=== PATIENT | male | born 1965 | race Caucasian/White ===

== ENCOUNTER 2018-07-03 14:07 | Inpatient (IN) ==
--- NOTE | 2018-07-03 14:19 | Emergency Department Note ---
Disposition Clinical Impression: Finger infection Disposition: Admitted As Inpatient Condition: Good Forms: ED Satisfaction Letter Time of Disposition: 15:29 Extremity Problem HPI - General Chief complaint: ED Extremity Problem,Nontraumatic Stated complaint: cellulitis on finger Time Seen by Provider: 07/03/18 14:17 Source: patient Mode of arrival: ambulatory Limitations: no limitations Nursing Notes Reviewed: Yes Vital Signs Reviewed: Yes - History of Present Illness HPI Narrative: Patient is a 52-year-old male with no past medical history. He presents today due to concern for left second digit/pointer finger infection. He states that he noted a small bump on the dorsal aspect of his second digit last week. He tried to pop this bump. Over the past week, he has developed redness, swelling, pus drainage. He saw an outside physician and is currently on Bactrim and Keflex. Note worsening pain, redness, swelling, pus drainage. Denies any injuries, falls, any injections in this area, any possibility of foreign bodies. Tetanus is not up-to-date. Denies any fevers, nausea, vomiting, diarrhea, abdominal pain, chest pain, shortness of breath. No allergies to any antibiotics. Pain Scale: 8 - Related Data Previous Rx's Medication Instructions Recorded Sulfamethoxazole/Trimeth DS 1 each PO BID 7 Days #14 tablet 06/30/18 [Bactrim DS] Allergies Allergy/AdvReac Type Severity Reaction Status Date / Time No Known Allergies Allergy Verified 06/30/18 18:01 All systems ED: reviewed and negative except as stated. Constitutional: Denies: fever Cardiovascular: Denies: chest pain Respiratory: Denies: cough, dyspnea Gastrointestinal: Denies: abdominal pain, nausea, vomiting, diarrhea, constipation Genitourinary: Denies: urgency, dysuria Integumentary: Reports: other (left pointer finger infection). Denies: rash Past Medical History - Past Medical History Attestation: Yes The following information was validated with the patient. Source: patient Medical history: Reports: non-contributory - Social History Smoking Status: Never smoker Smokeless Tobacco Status: No Alcohol use: Reports: occasionally Physical Exam - General Limitations: no limitations General appearance: alert, in no apparent distress - Head Head exam: atraumatic, normocephalic, normal inspection - Eye Eye exam: Present: normal appearance, PERRL, EOMI - ENT ENT exam: normal exam, normal oropharynx, mucous membranes moist - Neck Neck exam: Present: normal inspection, full ROM, trachea midline - Chest Chest inspection: Present: normal inspection, symmetric chest wall rise - Respiratory Respiratory exam: Present: normal lung sounds bilaterally - Cardiovascular Cardiovascular exam: Present: regular rate, normal rhythm, normal heart sounds - Expanded Upper Extremity Exam Hand L/R back image: 1 - Redness, swelling, fluctuance from middle phalanx to proximal phalanx of the pointer finger on the left. Small amount of pus drainage on the dorsal aspect. Erythema and cellulitis extending into the middle dorsum and ventral aspect of the hand. Mild pain with passive extension of the digit, fusiform swelling of the digit. Neuromotor exam: Normal: wrist extension, thumb opposition, thumb IP flexion, thumb adduction Neurosensory exam: Normal: radial nerve, ulnar nerve, median nerve - Neurological Exam Neurological exam: Present: alert, oriented X3. Absent: motor sensory deficit - Psychiatric Psychiatric exam: Present: normal affect, normal mood - Skin Skin exam: Present: warm, dry, intact, normal color Course Course Narrative: With those consulted. Discussed starting vancomycin, Unasyn, obtaining CT with contrast of the left hand for further assessment. Dr. Adelia Christensen is agreeable with this plan. He recommended admission to hospitalist service with him as a consult. No additional intervention or evaluation requested. Also update patient's tetanus at this time. Patient was agreeable with admission due to failed outpatient antibiotic therapy. Orthopedics will evaluate the patient at bedside once admitted and determine if he needs bedside incision and drainage or further debridement. Vital Signs Temperature 98.1 F 07/03/18 14:11 Pulse Rate 58 07/03/18 14:11 Respiratory Rate 18 07/03/18 14:11 Blood Pressure 149/82 07/03/18 14:11 O2 Sat by Pulse Oximetry 98 07/03/18 14:11 Temperature 98.1 F 07/03/18 15:02 Pulse Rate 61 07/03/18 15:02 Respiratory Rate 20 07/03/18 15:02 Blood Pressure 120/80 07/03/18 15:02 O2 Sat by Pulse Oximetry 97 07/03/18 15:02 Oxygen Delivery Oxygen Delivery Room Air Extremity Problem, Nontraumati - MDM Narrative Medical decision making narrative: With those consulted. Discussed starting vancomycin, Unasyn, obtaining CT with contrast of the left hand for further assessment. Dr. Adelia Christensen is agreeable with this plan. He recommended admission to hospitalist service with him as a consult. No additional intervention or evaluation requested. Also update patient's tetanus at this time. Patient was agreeable with admission due to failed outpatient antibiotic therapy. Orthopedics will evaluate the patient at bedside once admitted and determine if he needs bedside incision and drainage or further debridement. Consult placed. - Medical Records Medical records reviewed: Yes I reviewed the patient's medical records. - Lab Data Result diagrams: 07/03/18 14:37 07/03/18 14:37 Lab Results 07/03/18 07/03/18 07/03/18 Range/Units 14:37 14:37 14:37 WBC 14.0 H (4.3-11.1) K/mcL RBC 4.84 (4.19-5.50) M/mcL Hgb 14.7 (12.9-16.9) g/dL Hct 42.7 (37.5-50.1) % MCV 88.2 (83.0-100.0) fL MCH 30.4 (28.0-33.3) pg MCHC 34.4 (31.6-35.5) g/dL RDW 13.2 (11.5-14.5) % Plt Count 316 (140-400) K/mcL MPV 9.8 (9.4-12.4) fL Immature Gran % 0.2 (0-4) % Seg Neutrophils % 64.8 % Lymphocytes % 22.5 % Monocytes % 9.9 % Eosinophils % 2.0 % Basophils % 0.6 % Neutrophils # 9.1 H (1.6-8.9) K/mcL Lymphocytes # 3.2 (0.6-4.6) K/mcL Monocytes # 1.4 H (0.0-1.3) K/mcL Eosinophils # 0.3 (0.0-0.6) K/mcL Basophils # 0.1 (0.0-0.2) K/mcL PT 12.6 H (9.4-12.1) Seconds INR 1.1 Sodium 136 (136-145) mEq/L Potassium 4.2 (3.5-5.1) mEq/L Chloride 105 (98-107) mEq/L Carbon Dioxide 23 (23-29) mEq/L BUN 16 (6-20) mg/dL Creatinine 0.97 (0.70-1.30) mg/dL Est GFR ( Amer) > 60 (> 60) Est GFR (Non-Af Amer) > 60 (> 60) BUN/Creatinine Ratio 16 (6-26) Glucose 94 (70-105) mg/dL Calculated Osmolality 283 (280-300) Calcium 9.1 (8.6-10.3) mg/dL Total Bilirubin 0.4 (0.3-1.0) mg/dL AST 31 (13-39) Units/L ALT 19 (7-52) Units/L Alkaline Phosphatase 76 (34-104) Units/L Serum Total Protein 7.8 (6.4-8.9) g/dL Albumin 4.2 (3.5-5.7) g/dL Globulin 3.6 H (2.4-3.5) g/dL Albumin/Globulin Ratio 1.2 (1.1-2.2) - Radiology Data Radiology results reviewed: Yes I reviewed the patient's radiology results. S.B.AMelanie - Dimitris.Ji Situation: Demographics, MOA Background: Presenting Complaint, Relevant PMH, Meds, & Allergies Assessment: Vital Signs, Course and respsone to treatment, Exam Concerns, Patient/Family Expectation, Pertinant Lab Results, Outstanding Labs (CT left hand pending) Recommendation: Barrier(s) to disposition, Recommendation based on pending studies, treatments, or consults S.B.A.RIfeanyi Report Given to: Dr. Daniella Ritter Repor Time: 15:29 Attestation Statement - Attestation Attestation: I examined this patient and my medical decision-making was reviewed with the Resident Physician. I agree with the documented findings, disposition and treatment plan as described except to the extent set forth below. [id number] time provided Patient presents with significant left hand pain and swelling at the MCP joint affecting his second digit. Cellulitis present with a suspected abscess. He denies inciting injury. He is currently taking cephalexin and Bactrim. He will require admission and orthopedic consultation
[2018-07-03] MEDS ORDERED: Ampicillin/Sulbactam 1,500 MG in 0.9 % Sodium Chloride Mini Bag 100 ML IVPB ONE (14:25)
[2018-07-03] MEDS ORDERED: Isovue-370 500 ML INFUS..BTL IV ONE (14:29)
[2018-07-03] MEDS ORDERED: Tdap (Boostrix) Vaccine 0.5 ML SYRINGE IM ONE (14:34)
[2018-07-03 15:01] LABS: INR 1.1; Prothrombin Time 12.6 Seconds (9.4-12.1)
[2018-07-03 15:10] LABS: Alanine Aminotransferase 19 Units/L (7-52); Albumin 4.2 g/dL (3.5-5.7); Albumin/Globulin Ratio 1.2 (1.1-2.2); Alkaline Phosphatase 76 Units/L (34-104); Aspartate Amino Transferase 31 Units/L (13-39); BUN/Creatinine Ratio 16 (6-26); Bilirubin,Total 0.4 mg/dL (0.3-1.0); Blood Urea Nitrogen 16 mg/dL (6-20); Calcium 9.1 mg/dL (8.6-10.3); Carbon Dioxide 23 mEq/L (23-29); Chloride 105 mEq/L (98-107); Globulin 3.6 g/dL (2.4-3.5); Glucose 94 mg/dL (70-105); Osmolality,Calculated 283 (280-300); Potassium 4.2 mEq/L (3.5-5.1); Sodium 136 mEq/L (136-145); Total Protein 7.8 g/dL (6.4-8.9); eGFR For Non-African Americans > 60 (> 60)
[2018-07-03 15:14] LABS: Basophils # 0.1 K/mcL (0.0-0.2); Basophils % 0.6 %; Eosinophils # 0.3 K/mcL (0.0-0.6); Hematocrit 42.7 % (37.5-50.1); Hemoglobin 14.7 g/dL (12.9-16.9); Immature Granulocytes % 0.2 % (0-4); Lymphocytes # 3.2 K/mcL (0.6-4.6); Lymphocytes % 22.5 %; Mean Corpuscular HGB Conc 34.4 g/dL (31.6-35.5); Mean Corpuscular Hemoglobin 30.4 pg (28.0-33.3); Mean Corpuscular Volume 88.2 fL (83.0-100.0); Mean Platelet Volume 9.8 fL (9.4-12.4); Monocytes # 1.4 K/mcL (0.0-1.3); Monocytes % 9.9 %; Neutrophils # 9.1 K/mcL (1.6-8.9); Platelet Count 316 K/mcL (140-400); Red Blood Count 4.84 M/mcL (4.19-5.50); Red Cell Distribution Width 13.2 % (11.5-14.5); Segmented Neutrophils % 64.8 %
[2018-07-03] MEDS ORDERED: Acetaminophen 325 MG TABLET PO PRN ×2 (16:16→19:27)
[2018-07-03] MEDS ORDERED: traMADol 50 MG TABLET PO PRN ×2 (16:16→19:27)
[2018-07-03] MEDS ORDERED: Naloxone 0.4 MG/ML INJ IVP PRN ×2 (16:16→19:27)
--- NOTE | 2018-07-03 16:25 | Internal Med History&Physical ---
Date of Encounter: 07/03/18 Time of Encounter: 16:22 Internal Medicine - H&P: HPI Admitted From: Home Plans for Post Hospital Care: Home History of present illness: Patient is a 52-year-old male with no past medical history. He presents today due to concern for left second digit/pointer finger infection. He states that he noted a small bump on the dorsal aspect of his second digit last week. He tried to pop this bump. Over the past week, he has developed redness, swelling, pus drainage. He saw an outside physician and is currently on Bactrim and Keflex. Note worsening pain, redness, swelling, pus drainage. Denies any injuries, falls, any injections in this area, any possibility of foreign bodies. Tetanus is not up-to-date. Denies any fevers, nausea, vomiting, diarrhea, abdominal pain, chest pain, shortness of breath. No allergies to any antibiotics. Pt vital signs were stable at the ED, Labs showed leukocytosis. He received IV ampicillin and vancomycine at ED. Ortho hand surgery called and he will be admitted for inpatient management. Past Med Surg Social Fam HX - Past Medical History Medical history: non-contributory Psychiatric history: no psych history - Social History Smoking Status: Never smoker Smokeless Tobacco Status: No Alcohol use: occasionally Drug use: none Internal Medicine - H&P: Meds Sulfamethoxazole/Trimeth DS [Bactrim DS] 1 each PO BID 7 Days #14 tablet 06/30/18 [Rx] Cephalexin [Keflex] 500 mg PO QID 07/03/18 [History] Multivit-Min/FA/Lycopen/Lutein [A Thru Z Select Men 50+ Tablet] 1 tab PO DAILY 07/03/18 [History] Allergy/AdvReac Type Severity Reaction Status Date / Time No Known Allergies Allergy Verified 06/30/18 18:01 All Systems PM: A 10-system review of systems was performed and is negative for pertinent findings except as documented above in the HPI. Review of systems: REVIEW OF SYSTEMS: CONSTITUTIONAL: No weight loss, fever, chills, weakness or fatigue. HEENT: Eyes: No visual loss, blurred vision, double vision or yellow sclerae. Ears, Nose, Throat: No hearing loss, sneezing, congestion, runny nose or sore throat. SKIN: see HPI. CARDIOVASCULAR: No chest pain, chest pressure or chest discomfort. No palpitations or edema. RESPIRATORY: No shortness of breath, cough or sputum. GASTROINTESTINAL: No anorexia, nausea, vomiting or diarrhea. No abdominal pain or blood. GENITOURINARY: No dysuria, urgency, or frequency. NEUROLOGICAL: No headache, dizziness, syncope, paralysis, ataxia, numbness or tingling in the extremities. No change in bowel or bladder control. MUSCULOSKELETAL: No muscle, back pain, joint pain or stiffness. HEMATOLOGIC: No anemia, bleeding or bruising. LYMPHATICS: No enlarged nodes. No history of splenectomy. PSYCHIATRIC: No history of depression or anxiety. ENDOCRINOLOGIC: No reports of sweating, cold or heat intolerance. No polyuria or polydipsia. - Constitutional Vitals: Temp Pulse Resp BP Pulse Ox 98.1 F 61 20 120/80 97 07/03/18 15:02 07/03/18 15:02 07/03/18 15:02 07/03/18 15:02 07/03/18 15:02 General appearance: Present: cooperative, A&O X 3, answers questions appropriately Exam: PHYSICAL EXAMINATION: GENERAL APPEARANCE: The patient is alert, oriented and in no acute distress. HEENT: Head is normocephalic. The sinuses are nontender. Pupils are equal and reactive. The nares are patent. Oropharynx clear without lesions. NECK: Supple without lymphadenopathy. HEART: Regular rate and rhythm. LUNGS: No crackles or wheezes are heard. ABDOMEN: Soft, nontender, nondistended with good bowel sounds heard. Inguinal area is normal. EXTREMITIES: right index finger erythematous and edematous. NEUROLOGICAL: Gross nonfocal. SKIN: Warm and dry without any rash. Internal Med - H&P Results - Labs CBC & Chem 7: 07/03/18 14:37 07/03/18 14:37 Labs: Short CBC 07/03/18 Range/Units 14:37 WBC 14.0 H (4.3-11.1) K/mcL Hgb 14.7 (12.9-16.9) g/dL Hct 42.7 (37.5-50.1) % Plt Count 316 (140-400) K/mcL Neutrophils # 9.1 H (1.6-8.9) K/mcL BMP 07/03/18 14:37 Sodium 136 Potassium 4.2 Chloride 105 Carbon Dioxide 23 BUN 16 Creatinine 0.97 Glucose 94 Calcium 9.1 Liver Function 07/03/18 Range/Units 14:37 Total Bilirubin 0.4 (0.3-1.0) mg/dL AST 31 (13-39) Units/L ALT 19 (7-52) Units/L Alkaline Phosphatase 76 (34-104) Units/L Albumin 4.2 (3.5-5.7) g/dL - Impressions ITS Impressions Hand CT 07/03/18 14:29 IMPRESSION: 1. Severe soft tissue swelling/cellulitis and phlegmonous change along the radial aspect of the 2nd digit with early organizing, irregular, low-density collection likely representing developing/early abscess formation measuring approximately or an estimated 4.3 x 0.8 x 0.8 cm. [id number] cellulitis of the remainder of the forearm, wrist, and hand. 2. Mild osteoarthrosis. No acute fracture or gross dislocation. No aggressive osseous destruction. No clear CT evidence for osteomyelitis. D/ / 07/03/2018 16:02:20 Yannick Pinon MD / [facility] Interpreting Provider: Yannick Pinon MD - Assessment and plan (1) Finger infection Current Visit: Yes Status: Acute Assessment and plan: Right index finger infection with possible abscess. Hand surgeon called. Blood cx ordered. continue IV cefepime and vanco. (2) DVT prophylaxis Current Visit: Yes Status: Acute Assessment and plan: ambulating. SCDs. - Time Spent With Patient Total time spent is greater than 50% in coordination of care (as documented) at patient's floor/unit and/or counseling patient: Greater than 35 minutes
--- NOTE | 2018-07-03 17:01 | Anesthesia Evaluation PreOp ---
Date of Encounter: 07/03/18 Time of Encounter: 16:59 - Past History Planned Operation: I and D left hand Index finger Cardiac History: Denies any Significant Hx Pulmonary History: Denies Any Significant HX INSURANCE APPLICATION INVESTIGATOR History: Denies Any Significant HX Other Medical History: Denies Any Significant HX Anesthesia History: No Prior Anesthetic Complications, Past Anesthesia (tonsill s) Alcohol Use: occasionally Drug use: none Medications and Allergies Sulfamethoxazole/Trimeth DS [Bactrim DS] 1 each PO BID 7 Days #14 tablet 06/30/18 [Rx] Cephalexin [Keflex] 500 mg PO QID 07/03/18 [History] Multivit-Min/FA/Lycopen/Lutein [A Thru Z Select Men 50+ Tablet] 1 tab PO DAILY 07/03/18 [History] Allergy/AdvReac Type Severity Reaction Status Date / Time No Known Allergies Allergy Verified 06/30/18 18:01 - Meds/Allergy Pre-op Review Medications Reviewed: Yes Allergies Reviewed: Yes Beta Blockers on Current Med List: No Anesthesia Results - Labs 07/03/18 14:37 07/03/18 14:37 Laboratory Tests 07/03/18 14:37 PT 12.6 H INR 1.1 Anesthesia Exam Vital Signs/O2 Sat, Most Current Temp Pulse Resp BP Pulse Ox 98.1 F 61 20 120/80 97 07/03/18 15:02 07/03/18 15:02 07/03/18 15:02 07/03/18 15:02 07/03/18 15:02 Weight: 92kg NPO (# of Hours): >8 - HEENT Pupil (Motor): Pupils equal, EOMI Mallampati: II Teeth: Poor dentition Oral Opening: Greater than 3 - INSURANCE APPLICATION INVESTIGATOR LOC: Oriented INSURANCE APPLICATION INVESTIGATOR Motor: Normal RUE, Normal LUE, Normal RLE, Normal LLE, Normal Face INSURANCE APPLICATION INVESTIGATOR Sensory: Normal: RUE, LUE, RLE, LLE, Face - Cardiac Rhythm: Regular - Pulmonary Breath Sounds: bilateral Clear Respiratory Effort: Symmetrical Anesthesia Assess/Plan ASA Score: 2 Level of consciousness: Cooperative Anesthetic Plan: General Monitoring Plan: Standard Monitors Recovery Plan: PACU
[2018-07-03] MEDS ORDERED: Lidocaine -MPF 2% 2 ML VIAL ONE (17:29)
[2018-07-03] MEDS ORDERED: Propofol 500 MG/50 ML INFUS..BTL ONE (17:29)
[2018-07-03] MEDS ORDERED: *HR* Midazolam HCl 2 MG/2 ML VIAL ONE (17:29)
[2018-07-03] MEDS ORDERED: *HR* FentaNYL (PF) 100 MCG/2 ML VIAL ONE ×2 (17:29→18:26)
[2018-07-03] MEDS ORDERED: Bupivacaine/EPI 1:200k 0.5%PF 10 ML VIAL ONE (17:30)
[2018-07-03] MEDS ORDERED: Ondansetron 4 MG/2 ML VIAL ONE (17:34)
[2018-07-03] MEDS ORDERED: Dexamethasone 4 MG/ML VIAL ONE (17:34)
[2018-07-03] MEDS ORDERED: *HR* OxyCODONE Immed Rel 5 MG TABLET PO PRN ×2 (17:35→19:27)
[2018-07-03] MEDS ORDERED: *HR* Promethazine 25 MG/ML VIAL IVP PRN ×2 (17:35→19:27)
[2018-07-03] MEDS ORDERED: *HR* HYDROmorphone (PF) 1 MG/ML SYRINGE IVP PRN ×2 (17:35→19:27)
[2018-07-03] MEDS ORDERED: KETAMINE HCL 50 MG/ML SYRINGE IV ONE (17:37)
--- NOTE | 2018-07-03 17:45 | Orthopedic Consult Note ---
Date of Encounter: 07/03/18 Time of Encounter: 17:42 Assessment and Plan (1) Abscess of skin or subcutaneous tissue Current Visit: No Status: Acute I did discuss the diagnosis in detail the patient. He has a left hand infection with soft tissue abscess. My recommendation was for incision, drainage, irrigation, debridement of left hand and dorsal index finger. The risks discussed included but were not limited to stiffness, bleeding, infection, blood clots, damage to neurovascular structures, tendons, ligaments, and bone. Also discussed was the risk of continued symptoms and possible need for further procedures. I did discuss the anesthesia risks including stroke, heart attack, and . I did discuss the reasonable, foreseeable postoperative course with the patient. The patient did wish to proceed and consent was obtained. I did discuss the risk for possibly needing multiple debridements depending on the postoperative course. He will need IV antibiotics through the weekend. Qualifiers: Site of cutaneous abscess: extremity Site of cutaneous abscess of extremity: hand Laterality: left Qualified Code(s): L02.512 - Cutaneous abscess of left hand History of Present Illness HPI: Mr. Taylor is a 52 year old male who is seen in the emergency department after 6 day history of pain and swelling to the left hand and dorsal index finger. He works as a airframe and power plant mechanic. He is seen in the emergency department here and diagnosed with a hand and index finger abscess by the emergency department physician. The patient is unclear exactly what caused the infection. He denies injecting IV drugs. He denies any numbness, tingling, or any other associated signs or symptoms. It is worse with movement of the index finger better with rest. No other modifying factors. He denies any fevers, chills, or feelings of illness. Past Med Surg Social Fam HX - Past Medical History Medical history: non-contributory Psychiatric history: no psych history - Social History Smoking Status: Never smoker Smokeless Tobacco Status: No Alcohol use: occasionally Drug use: none Medications and Allergies Sulfamethoxazole/Trimeth DS [Bactrim DS] 1 each PO BID 7 Days #14 tablet 06/30/18 [Rx] Cephalexin [Keflex] 500 mg PO QID 07/03/18 [History] Multivit-Min/FA/Lycopen/Lutein [A Thru Z Select Men 50+ Tablet] 1 tab PO DAILY 07/03/18 [History] Allergy/AdvReac Type Severity Reaction Status Date / Time No Known Allergies Allergy Verified 06/30/18 18:01 All Systems Reviewed: Constitutional -The patient denies any fevers, chills, or feelings of illness Musculoskeletal -The patient denies any joint pains, swelling, muscle aches Neurologic -The patient denies any numbness, tingling, or burning pains Physical Exam - Constitutional Vitals: Temp Pulse Resp BP Pulse Ox 98.1 F 62 20 122/74 99 07/03/18 15:02 07/03/18 17:00 07/03/18 17:06 07/03/18 17:06 07/03/18 17:00 CONSTITUTIONAL -Vitals reviewed -The patient is well developed, well nourished, well groomed PSYCHIATRIC -Fully alert and oriented -Pleasant mood LEFT UPPER EXTREMITY Inspection shows significant swelling of the index finger and the hand with fluctuance and induration along the dorsal metacarpophalangeal joint region. There is tenderness to palpation mostly over the area of fluctuance and induration. Cellulitis is limited to the dorsal hand and index finger region. Full motion of the elbow, wrist, and other digits without issue. The patient can actively flex and extend all digits, extend the thumb, cross the index and long fingers, make an okay sign, and oppose the thumb. The fingertips are all grossly sensate and well-perfused, and the radial artery pulse is 2+. Diagnostic Imaging: I did personally review and interpret x-rays and the CT scan of the left hand which show a soft tissue abscess along the dorsal aspect of the index finger spreading into the hand. No concern for osteomyelitis. Results - Labs Result Diagrams: 07/03/18 14:37 07/03/18 14:37 Labs: Abnormal lab results WBC 14.0 K/mcL (4.3-11.1) H 07/03/18 14:37 Neutrophils # 9.1 K/mcL (1.6-8.9) H 07/03/18 14:37 Monocytes # 1.4 K/mcL (0.0-1.3) H 07/03/18 14:37 PT 12.6 Seconds (9.4-12.1) H 07/03/18 14:37 Globulin 3.6 g/dL (2.4-3.5) H 07/03/18 14:37 H & H 07/03/18 Range/Units 14:37 Hgb 14.7 (12.9-16.9) g/dL Hct 42.7 (37.5-50.1) % All other labs normal. Consult Discharge Plan - Plan Referrals: NONE,PCP [Primary Care Provider] -
[2018-07-03] MEDS ORDERED: *HR* Heparin 5,000 UNIT/ML VIAL SQ SCH (18:00)
[2018-07-03] MEDS ORDERED: Cefepime HCl 2,000 MG in 0.9 % Sodium Chloride Mini Bag 100 ML IVPB SCH (18:00)
[2018-07-03] MEDS ORDERED: Ketorolac 30 MG/ML VIAL ONE (18:33)
--- NOTE | 2018-07-03 18:51 | Orthopedic Operative Note ---
Date of procedure: 07/03/18 Procedure: OPERATIVE REPORT SURGEON: Steven Flynn MD PREOPERATIVE DIAGNOSIS: Left index finger abscess POSTOPERATIVE DIAGNOSIS: Same PROCEDURE: Incision, drainage, irrigation, and debridement of the left index finger ANESTHESIA: Gen. anesthesia SPECIMENS: Left index finger swabs PREOPERATIVE NOTE The surgical plan was reviewed with the patient. The risks, benefits, alternatives, and potential complications of this procedure were discussed with the patient including injury to veins, arteries, nerves, tendons, ligaments, and bone. Also discussed were the risks of infection, bleeding, pain, blood clots, the possible need for a blood transfusion, the possible need for further procedures, heart attack, stroke, and . Additional risks include persistent symptoms despite surgery. All of this was explained in simple terms, and the patient verbalized understanding and wished to proceed. Consent was given to proceed with surgery. PROCEDURE: The patient was seen in the preoperative holding area where the identify and the consent were confirmed. The left index finger was marked. Final questions were answered. The patient was brought back to the operating room and placed supine on the operating room table. A huddle was performed with the patient and all vital surgical team members confirming patient identity, the correct procedure, and the correct operative site. Gen. anesthesia was administered. The operative extremity was prepped and draped in the usual sterile fashion. A surgical time out was performed immediately preceding the incision with all personnel in the operating room to confirm patient identity, the correct operative site and extremity, correct radiographic studies, availability of appropriate surgical equipment, and agreement on the planned procedure. The tourniquet was inflated without exsanguination. A dorsal longitudinal incision was made over the index finger and dissection proceeded through the subcutaneous tissue immediately decompressing copious amounts of grossly purulent material. The infection did not go down to the extensor tendon region however it did not penetrate down to bone. The MCP joint was not involved. Necrotic subcutaneous fat was sharply debrided. Wound was irrigated with 3 L of saline. The wound bed appeared clean after debridement. The wound was loosely closed over a Mermentau drain. The tourniquet was deflated and a soft, sterile dressing was applied. The instrument, sponge, and needle counts were correct after wound closure. POST OPERATIVE PLAN: He will remain over the weekend on IV antibiotics to evaluate for improvement. I anticipate pulling the drain on Friday depending on the amount of drainage. Was there an internal medicine physician assistant present: No Estimated blood loss (cc): 5
[2018-07-03] MEDS: Cefepime HCl 2,000 MG in Water for inj. (sterile) 20 ML 20 ML IVP SCH (21:28)
[2018-07-04 05:57] LABS: Basophils % 0.2 %; Hematocrit 38.5 % (37.5-50.1); Hemoglobin 13.4 g/dL (12.9-16.9); Immature Granulocytes % 0.4 % (0-4); Lymphocytes # 1.8 K/mcL (0.6-4.6); Lymphocytes % 16.3 %; Mean Corpuscular HGB Conc 34.8 g/dL (31.6-35.5); Mean Corpuscular Hemoglobin 30.5 pg (28.0-33.3); Mean Corpuscular Volume 87.5 fL (83.0-100.0); Mean Platelet Volume 9.7 fL (9.4-12.4); Monocytes # 0.5 K/mcL (0.0-1.3); Monocytes % 4.6 %; Neutrophils # 8.5 K/mcL (1.6-8.9); Platelet Count 317 K/mcL (140-400); Segmented Neutrophils % 78.5 %
[2018-07-04] MEDS: *HR* Heparin 5,000 UNIT/ML VIAL SQ SCH ×2 (06:08→17:57)
[2018-07-04 06:17] LABS: BUN/Creatinine Ratio 17 (6-26); Blood Urea Nitrogen 15 mg/dL (6-20); Calcium 8.7 mg/dL (8.6-10.3); Carbon Dioxide 23 mEq/L (23-29); Chloride 105 mEq/L (98-107); Glucose 145 mg/dL (70-105); Osmolality,Calculated 285 (280-300); Potassium 4.5 mEq/L (3.5-5.1); Sodium 136 mEq/L (136-145); eGFR For Non-African Americans > 60 (> 60)
[2018-07-04] MEDS: Cefepime HCl 2,000 MG in Water for inj. (sterile) 20 ML 20 ML IVP SCH ×2 (08:15→21:18)
--- NOTE | 2018-07-04 08:55 | Orthopedics Progress Note ---
Date of Encounter: 07/04/18 Time of Encounter: 08:53 - Assessment and Plan (1) Abscess of skin or subcutaneous tissue Current Visit: No Status: Acute Qualifiers: Site of cutaneous abscess: extremity Site of cutaneous abscess of extremity: hand Laterality: left Qualified Code(s): L02.512 - Cutaneous abscess of left hand Subjective Interval history: S: Significant improvement in pain to the left index finger O: Afebrile on the vital signs are stable Inspection shows significant improvement in the swelling and improvement in the erythema to the left hand and dorsal index finger Maddison is in place No purulent drainage He can grossly motor the digits with some limitation due to pain and swelling The patient can actively flex and extend all digits, extend the thumb, cross the index and long fingers, make an okay sign, and oppose the thumb. The fingertips are all grossly sensate and well-perfused, and the radial artery pulse is 2+. Cultures are pending A: Post I&D of the left hand and index finger P: My recommendation is continued IV antibiotics over the weekend Continued local wound care with daily dressing changes I anticipate pulling the drain tomorrow I did encourage ambulation for DVT prophylaxis Motion exercises of the digits to reduce stiffness Objective Vital signs: Vital Signs Temp Pulse Resp BP Pulse Ox 07/04/18 06:26 98 F 63 17 102/66 95 07/04/18 04:10 98.9 F 63 17 132/88 97 07/03/18 23:15 99.3 F 60 18 130/92 98 07/03/18 19:14 62 18 127/90 99 07/03/18 19:04 65 16 148/89 98 07/03/18 18:54 65 16 137/89 98 07/03/18 18:44 99.8 F H 64 12 131/92 94 07/03/18 17:06 20 122/74 07/03/18 17:00 62 20 128/88 99 07/03/18 15:02 98.1 F 61 20 120/80 97 07/03/18 15:01 61 20 120/80 97 07/03/18 14:45 58 20 123/81 96 07/03/18 14:11 98.1 F 58 18 149/82 98 Intake and Output 07/03/18 07/04/18 07/04/18 23:59 07:59 15:59 Intake Total 270 / 270 Output Total 5 / 5 Balance 265 / 265 Intake: IV Fluids 270 / 270 Maxipime 2,000 MG In Water for / inj. (sterile) 20 ML @ 300 mls/ hr IVP BID [facility] Rx#:[id number] Vancocin 1,500 MG In 0.9 % 250 / 250 Sodium Chloride 250 ML @ 167 mls/hr IVPB ONCE ONE Rx#: [id number] Output: Estimated Blood Loss Other: # Voids 1 1 Weight 92.5 kg Patient Weight 07/04/18 23:59 Weight 92.5 kg - Labs CBC & BMP: 07/04/18 05:18 07/04/18 05:18 Labs: Abnormal lab results PT 12.6 Seconds (9.4-12.1) H 07/03/18 14:37 Glucose 145 mg/dL (70-105) H 07/04/18 05:18 Globulin 3.6 g/dL (2.4-3.5) H 07/03/18 14:37 Consult Discharge Plan - Plan Referrals: NONE,PCP [Primary Care Provider] -
--- NOTE | 2018-07-04 12:24 | Internal Med Progress Note ---
Hospitalist Progress Note - Encounter Date of Encounter: 07/04/18 Time of Encounter: 12:22 - Subjective Interval History: pt feels much better, can move the fingers. - Exam Vitals: Temp Pulse Resp BP Pulse Ox 97.9 F 59 16 134/69 97 07/04/18 11:27 07/04/18 11:27 07/04/18 11:27 07/04/18 11:27 07/04/18 11:27 Exam: PHYSICAL EXAMINATION: GENERAL APPEARANCE: The patient is alert, oriented and in no acute distress. HEENT: Head is normocephalic. The sinuses are nontender. Pupils are equal and reactive. The nares are patent. Oropharynx clear without lesions. NECK: Supple without lymphadenopathy. HEART: Regular rate and rhythm. LUNGS: No crackles or wheezes are heard. ABDOMEN: Soft, nontender, nondistended with good bowel sounds heard. Inguinal area is normal. EXTREMITIES: right index finger covered with dressing. NEUROLOGICAL: Gross nonfocal. SKIN: Warm and dry without any rash. - Assessment and Plan (1) Finger infection Current Visit: Yes Status: Acute Assessment and Plan: Right index finger infection with possible abscess. s/p I+D, continue IV abx. Ortho following. (2) DVT prophylaxis Current Visit: Yes Status: Acute Assessment and Plan: ambulating. SCDs. - Time Spent with Patient Total time spent is greater than 50% in coordination of care (as documented) at patient's floor/unit and/or counseling patient: Greater than 35 minutes Plan of Care Discussed with: patient Internal Medicine: Result - Labs CBC & Chem 7: 07/04/18 05:18 07/04/18 05:18 Labs: Short CBC 07/03/18 07/04/18 Range/Units 14:37 05:18 WBC 14.0 H 10.8 (4.3-11.1) K/mcL Hgb 14.7 13.4 (12.9-16.9) g/dL Hct 42.7 38.5 (37.5-50.1) % Plt Count 316 317 (140-400) K/mcL Neutrophils # 9.1 H 8.5 (1.6-8.9) K/mcL BMP 07/03/18 07/04/18 14:37 05:18 Sodium 136 136 Potassium 4.2 4.5 Chloride 105 105 Carbon Dioxide 23 23 BUN 16 15 Creatinine 0.97 0.89 Glucose 94 145 H Calcium 9.1 8.7 Liver Function 07/03/18 Range/Units 14:37 Total Bilirubin 0.4 (0.3-1.0) mg/dL AST 31 (13-39) Units/L ALT 19 (7-52) Units/L Alkaline Phosphatase 76 (34-104) Units/L Albumin 4.2 (3.5-5.7) g/dL - ABG Interpretation ABG results: PT/INR, D-dimer PT 12.6 Seconds (9.4-12.1) H 07/03/18 14:37 - Impressions Impressions Hand CT 07/03/18 14:29 IMPRESSION: 1. Severe soft tissue swelling/cellulitis and phlegmonous change along the radial aspect of the 2nd digit with early organizing, irregular, low-density collection likely representing developing/early abscess formation measuring approximately or an estimated 4.3 x 0.8 x 0.8 cm. [id number] cellulitis of the remainder of the forearm, wrist, and hand. 2. Mild osteoarthrosis. No acute fracture or gross dislocation. No aggressive osseous destruction. No clear CT evidence for osteomyelitis. D/ / 07/03/2018 16:02:20 Yannick Pinon [facility] Interpreting Provider: Yannick Pinon MD Consult Discharge Plan - Plan Referrals: NONE,PCP [Primary Care Provider] -
[2018-07-05 03:20] LABS: Basophils # 0.1 K/mcL (0.0-0.2); Basophils % 1.1 %; Eosinophils # 0.3 K/mcL (0.0-0.6); Eosinophils % 3.7 %; Hematocrit 38.4 % (37.5-50.1); Hemoglobin 12.8 g/dL (12.9-16.9); Immature Granulocytes % 0.3 % (0-4); Lymphocytes # 3.1 K/mcL (0.6-4.6); Lymphocytes % 39.4 %; Mean Corpuscular HGB Conc 33.3 g/dL (31.6-35.5); Mean Corpuscular Hemoglobin 29.9 pg (28.0-33.3); Mean Corpuscular Volume 89.7 fL (83.0-100.0); Mean Platelet Volume 9.5 fL (9.4-12.4); Monocytes # 0.8 K/mcL (0.0-1.3); Monocytes % 9.8 %; Neutrophils # 3.6 K/mcL (1.6-8.9); Platelet Count 329 K/mcL (140-400); Red Blood Count 4.28 M/mcL (4.19-5.50); Segmented Neutrophils % 45.7 %
[2018-07-05 03:43] LABS: BUN/Creatinine Ratio 20 (6-26); Blood Urea Nitrogen 19 mg/dL (6-20); Calcium 8.1 mg/dL (8.6-10.3); Carbon Dioxide 26 mEq/L (23-29); Chloride 109 mEq/L (98-107); Glucose 107 mg/dL (70-105); Osmolality,Calculated 291 (280-300); Sodium 139 mEq/L (136-145); eGFR For Non-African Americans > 60 (> 60)
[2018-07-05] MEDS: *HR* Heparin 5,000 UNIT/ML VIAL SQ SCH ×2 (04:37→16:55)
--- NOTE | 2018-07-05 09:58 | Orthopedics Progress Note ---
Date of Encounter: 07/05/18 Time of Encounter: 09:57 - Assessment and Plan (1) Abscess of skin or subcutaneous tissue Current Visit: No Status: Acute Qualifiers: Site of cutaneous abscess: extremity Site of cutaneous abscess of extremity: hand Laterality: left Qualified Code(s): L02.512 - Cutaneous abscess of left hand Subjective Interval history: S: Significant improvement in pain to the left index finger O: Afebrile on the vital signs are stable Inspection shows significant improvement in the swelling and improvement in the erythema to the left hand and dorsal index finger Maddison is pulled No purulent drainage He can grossly motor the digits with some limitation due to pain and swelling The patient can actively flex and extend all digits, extend the thumb, cross the index and long fingers, make an okay sign, and oppose the thumb. The fingertips are all grossly sensate and well-perfused, and the radial artery pulse is 2+. Cultures are presumptively positive for MRSA A: Post I&D of the left hand and index finger P: My recommendation is continued IV antibiotics over the weekend Continued local wound care with daily dressing changes Anticipate discharge tomorrow on oral antibiotics if he continues to improve overnight. I did encourage ambulation for DVT prophylaxis Motion exercises of the digits to reduce stiffness Objective Vital signs: Vital Signs Temp Pulse Resp BP Pulse Ox 07/05/18 06:29 97.9 F 64 16 118/76 98 07/05/18 05:17 97.7 F 55 16 112/70 97 07/05/18 00:06 98.5 F 59 16 109/60 94 07/04/18 20:27 98.8 F 64 14 115/66 95 07/04/18 16:11 98.6 F 63 16 105/62 95 07/04/18 11:27 97.9 F 59 16 134/69 97 Intake and Output 07/04/18 07/05/18 07/05/18 23:59 07:59 15:59 Intake Total 510 / 510 250 / 250 Output Total 0 / 0 Balance 510 / 510 250 / 250 Intake: IV Fluids 270 / 270 250 / 250 Maxipime 2,000 MG In Water for inj. (sterile) 20 ML @ 300 mls/ hr IVP BID [facility] Rx#:[id number] Vancocin 1,500 MG In 0.9 % 250 / 250 250 / 250 Sodium Chloride 250 ML @ 166.67 mls/hr IVPB Q12H [facility] Rx#: [id number] Oral 240 / 240 0 / 0 Output: Urine 0 / 0 Other: Meal Dinner Percent of Meal Consumed 100% # Voids 1 1 Weight 92.38 kg Patient Weight 07/05/18 23:59 Weight 92.38 kg - Labs CBC & BMP: 07/05/18 03:03 07/05/18 03:03 Labs: Abnormal lab results Hgb 12.8 g/dL (12.9-16.9) L 07/05/18 03:03 PT 12.6 Seconds (9.4-12.1) H 07/03/18 14:37 Chloride 109 mEq/L (98-107) H 07/05/18 03:03 Glucose 107 mg/dL (70-105) H 07/05/18 03:03 Calcium 8.1 mg/dL (8.6-10.3) L 07/05/18 03:03 Globulin 3.6 g/dL (2.4-3.5) H 07/03/18 14:37 Vancomycin Trough 11 mcg/mL (5-10) H 07/05/18 03:03 Consult Discharge Plan - Plan Referrals: NONE,PCP [Primary Care Provider] -
--- NOTE | 2018-07-05 10:22 | Internal Med Progress Note ---
Hospitalist Progress Note - Encounter Date of Encounter: 07/05/18 Time of Encounter: 10:18 - Subjective Interval History: pt feels much better, can move the fingers. - Exam Vitals: Temp Pulse Resp BP Pulse Ox 97.9 F 64 16 118/76 98 07/05/18 06:29 07/05/18 06:29 07/05/18 06:29 07/05/18 06:29 07/05/18 06:29 Exam: PHYSICAL EXAMINATION: GENERAL APPEARANCE: The patient is alert, oriented and in no acute distress. HEENT: Head is normocephalic. The sinuses are nontender. Pupils are equal and reactive. The nares are patent. Oropharynx clear without lesions. NECK: Supple without lymphadenopathy. HEART: Regular rate and rhythm. LUNGS: No crackles or wheezes are heard. ABDOMEN: Soft, nontender, nondistended with good bowel sounds heard. Inguinal area is normal. EXTREMITIES: right index finger covered with dressing. fingers are warm, can perform active movement, no pain, numbness, or tingling. NEUROLOGICAL: Gross nonfocal. SKIN: Warm and dry without any rash. - Assessment and Plan (1) Finger infection Current Visit: Yes Status: Acute Assessment and Plan: Right index finger infection with abscess. s/p I+D, Day 2. Wound cx preli minarily reported MRSA. cefepime dc'ed. continue vanco, will switch to oral and dc home tomorrow if continue to do well. Ortho following. (2) DVT prophylaxis Current Visit: Yes Status: Acute Assessment and Plan: ambulating. SCDs. - Time Spent with Patient Total time spent is greater than 50% in coordination of care (as documented) at patient's floor/unit and/or counseling patient: Greater than 35 minutes Plan of Care Discussed with: patient Internal Medicine: Result - Labs CBC & Chem 7: 07/05/18 03:03 07/05/18 03:03 Labs: Short CBC 07/05/18 Range/Units 03:03 WBC 7.8 (4.3-11.1) K/mcL Hgb 12.8 L (12.9-16.9) g/dL Hct 38.4 (37.5-50.1) % Plt Count 329 (140-400) K/mcL Neutrophils # 3.6 (1.6-8.9) K/mcL BMP 07/05/18 03:03 Sodium 139 Potassium 4.0 Chloride 109 H Carbon Dioxide 26 BUN 19 Creatinine 0.93 Glucose 107 H Calcium 8.1 L - ABG Interpretation ABG results: PT/INR, D-dimer PT 12.6 Seconds (9.4-12.1) H 07/03/18 14:37 Consult Discharge Plan - Plan Referrals: NONE,PCP [Primary Care Provider] -
[2018-07-05] MEDS ORDERED: Aminoglycoside Consult 1 EACH MC ONE (11:04)
[2018-07-06] MEDS: *HR* Heparin 5,000 UNIT/ML VIAL SQ SCH (05:23)
[2018-07-06 05:36] LABS: Basophils # 0.1 K/mcL (0.0-0.2); Basophils % 1.1 %; Eosinophils # 0.4 K/mcL (0.0-0.6); Eosinophils % 4.8 %; Hematocrit 42.2 % (37.5-50.1); Immature Granulocytes % 0.2 % (0-4); Mean Corpuscular HGB Conc 34.4 g/dL (31.6-35.5); Mean Corpuscular Volume 87.4 fL (83.0-100.0); Mean Platelet Volume 9.3 fL (9.4-12.4); Monocytes # 0.9 K/mcL (0.0-1.3); Monocytes % 11.3 %; Neutrophils # 3.7 K/mcL (1.6-8.9); Platelet Count 388 K/mcL (140-400); Red Blood Count 4.83 M/mcL (4.19-5.50); Segmented Neutrophils % 45.6 %
[2018-07-06 05:50] LABS: Hemoglobin 14.5 g/dL (12.9-16.9)
[2018-07-06 06:01] LABS: BUN/Creatinine Ratio 16 (6-26); Blood Urea Nitrogen 16 mg/dL (6-20); Carbon Dioxide 29 mEq/L (23-29); Chloride 102 mEq/L (98-107); Glucose 94 mg/dL (70-105); Osmolality,Calculated 291 (280-300); Sodium 140 mEq/L (136-145); eGFR For Non-African Americans > 60 (> 60)
--- NOTE | 2018-07-06 07:33 | Orthopedics Progress Note ---
Date of Encounter: 07/06/18 Time of Encounter: 07:31 - Assessment and Plan (1) Abscess of skin or subcutaneous tissue Current Visit: No Status: Acute Qualifiers: Site of cutaneous abscess: extremity Site of cutaneous abscess of extremity: hand Laterality: left Qualified Code(s): L02.512 - Cutaneous abscess of left hand Subjective Interval history: S: Continued improvement in pain to the left index finger O: Afebrile on the vital signs are stable Inspection shows significant improvement in the swelling and improvement in the erythema to the left hand and dorsal index finger No purulent drainage He can grossly motor the digits with some limitation due to pain and swelling The patient can actively flex and extend all digits, extend the thumb, cross the index and long fingers, make an okay sign, and oppose the thumb. The fingertips are all grossly sensate and well-perfused, and the radial artery pulse is 2+. A: Post I&D of the left hand and index finger P: At this point my recommendation is switching to oral antibiotics and discharged. I did discuss daily dressing changes and cleanses with the patient I did encourage ambulation for DVT prophylaxis Motion exercises of the digits to reduce stiffness Objective Vital signs: Vital Signs Temp Pulse Resp BP Pulse Ox 07/06/18 06:34 97.5 F L 57 18 121/79 94 07/06/18 04:16 97.9 F 60 14 111/69 97 07/06/18 00:37 97.8 F 54 16 118/78 97 07/05/18 20:11 98.8 F 57 14 127/79 96 07/05/18 09:47 98.1 F 68 16 121/73 99 Intake and Output 07/05/18 07/05/18 07/06/18 15:59 23:59 07:59 Intake Total 1640 / 1640 250 / 250 Output Total 500 / 500 Balance 1140 / 1140 250 / 250 Intake: IV Fluids 250 / 250 250 / 250 Vancocin 1,500 MG In 0.9 % 250 / 250 250 / 250 Sodium Chloride 250 ML @ 166.67 mls/hr IVPB Q12H [facility] Rx#: [id number] Oral 1390 / 1390 0 / 0 Output: Urine 500 / 500 Other: Meal Dinner Percent of Meal Consumed 90% # Voids 1 1 Weight 91.9 kg Patient Weight 07/06/18 23:59 Weight 91.9 kg - Labs CBC & BMP: 07/06/18 04:39 07/06/18 04:39 Labs: Abnormal lab results MPV 9.3 fL (9.4-12.4) L 07/06/18 04:39 PT 12.6 Seconds (9.4-12.1) H 07/03/18 14:37 Globulin 3.6 g/dL (2.4-3.5) H 07/03/18 14:37 Vancomycin Trough 11 mcg/mL (5-10) H 07/05/18 03:03 Consult Discharge Plan - Plan Instructions: Methicillin Resistant Staphylococcus Aureus (DC), Methicillin Resistant Staphylococcus Aureus (GEN) Additional Instructions: DISCHARGE INSTRUCTIONS Dr. Flynn DISCHARGE DIAGNOSIS/PROCEDURE Washout of the left index finger ACTIVITY: Avoid aggressive activities with arm in which you were operated. Okay to move your fingers which will be good exercise. WOUND CARE: Daily dressing changes and peroxide soaks as explained in the hospital. DRIVING: Do not drive while taking narcotic pain medications. DIET: Begin with clear liquids, and then increase your diet as you feel comfortable. MEDICATIONS: Pain medication and antibiotic per the hospitalist FOLLOW-UP Follow-up with Dr. Flynn or Vanessa Ramírez PA-C at the office July 09 for a postoperative evaluation. Call the office at [phone] to schedule or confirm your appointment. WHEN TO CALL THE DOCTOR OR WHEN TO SEEK CARE BEFORE YOUR APPOINTMENT 1. Excess swelling or increased numbness not made better by elevating the hand and moving the fingers. 2. Uncontrolled pain. 3. A color change in your hand or fingers. 4. Worsening redness or drainage. 5. Fevers over 100.5 degrees F or 38.1 degrees C. 6. Any symptoms that bring concern to you. Referrals: NONE,PCP [Primary Care Provider] -
--- NOTE | 2018-07-06 09:33 | Discharge Summary ---
- NOTES TO OUTPATIENT PROVIDER Notes to Outpatient Provider: f/u with PCP within a week. f/u with ortho within a week. Orders not resulted at time of discharge: Pending orders 07/03/18 16:32 Culture,Blood [BC] Routine 07/03/18 18:55 Culture,Anaerobic [RM] Routine Date of Encounter: 07/06/18 Time of Encounter: 09:31 - Discharge Diagnosis (1) Finger infection Priority: Primary Status: Acute (2) DVT prophylaxis Priority: Primary Status: Acute Hospital course: Mr. Taylor is a 52 year old male presented with right index finger infection with abscess. underent right index finger I+D by orthopedics on 07/03/2018, Wound cx preliminarily reported MRSA. Pt received 3 days of IV vanco, which was switched to oral Clindamycin. Pt will be discharged home today. take oral clindamycin for 7 more days. f/u with PCP and Ortho as scheduled. Discharge discussed with: patient Time spent discussing smoking cessation with patient: more than 10 minutes - Time Spent with Patient Total time spent providing and/or coordinating discharge services: Greater than 30 minutes - Discharge Medications Prescriptions: Clindamycin [Cleocin] 300 mg PO Q8HR #21 capsule Home Medications: Multivit-Min/FA/Lycopen/Lutein [A Thru Z Select Men 50+ Tablet] 1 tab PO DAILY 07/03/18 [History] Clindamycin [Cleocin] 300 mg PO Q8HR #21 capsule 07/06/18 [Rx] Allergies/Adverse Reactions: Allergy/AdvReac Type Severity Reaction Status Date / Time No Known Allergies Allergy Verified 06/30/18 18:01 Date of admission: 07/03/18 16:17 Primary care physician: PCP NONE Consults: 07/03/18 14:22 Consult to Orthopedic Surgery [CONS] Stat Consulting Provider: [facility] Reason for Consult: left hand cellulitis Time Notified: 14:22 Call Completed: Yes Anticipated date of discharge: 07/06/18 - Constitutional Vitals: Temp Pulse Resp BP Pulse Ox 97.5 F L 57 18 121/79 94 07/06/18 06:34 07/06/18 06:34 07/06/18 06:34 07/06/18 06:34 07/06/18 06:34 General appearance: Present: cooperative, A&O X 3, answers questions appropriately Exam: PHYSICAL EXAMINATION: GENERAL APPEARANCE: The patient is alert, oriented and in no acute distress. HEENT: Head is normocephalic. The sinuses are nontender. Pupils are equal and reactive. The nares are patent. Oropharynx clear without lesions. NECK: Supple without lymphadenopathy. HEART: Regular rate and rhythm. LUNGS: No crackles or wheezes are heard. ABDOMEN: Soft, nontender, nondistended with good bowel sounds heard. Inguinal area is normal. EXTREMITIES: right index finger covered with dressing. fingers are warm, can perform active movement, no pain, numbness, or tingling. NEUROLOGICAL: Gross nonfocal. SKIN: Warm and dry without any rash. - Patient Status Disposition: Home, Self-Care Condition: Good Functional capacity at discharge: independent ambulation Overall status at discharge: patient is back to baseline - Discharge Instructions Instructions: Methicillin Resistant Staphylococcus Aureus (DC), Methicillin Resistant Staphylococcus Aureus (GEN) Follow Up With: Steven Flynn MD [Partnered Physician] - 07/09/18 11:15 am Additional Instructions: DISCHARGE INSTRUCTIONS Dr. Flynn DISCHARGE DIAGNOSIS/PROCEDURE Washout of the left index finger ACTIVITY: Avoid aggressive activities with arm in which you were operated. Okay to move your fingers which will be good exercise. WOUND CARE: Daily dressing changes and peroxide soaks as explained in the hospital. DRIVING: Do not drive while taking narcotic pain medications. DIET: Begin with clear liquids, and then increase your diet as you feel comfortable. MEDICATIONS: Pain medication and antibiotic per the hospitalist FOLLOW-UP Follow-up with Dr. Flynn or Vanessa Ramírez PA-C at the office July 09 for a postoperative evaluation. Call the office at [phone] to schedule or confirm your appointment. WHEN TO CALL THE DOCTOR OR WHEN TO SEEK CARE BEFORE YOUR APPOINTMENT 1. Excess swelling or increased numbness not made better by elevating the hand and moving the fingers. 2. Uncontrolled pain. 3. A color change in your hand or fingers. 4. Worsening redness or drainage. 5. Fevers over 100.5 degrees F or 38.1 degrees C. 6. Any symptoms that bring concern to you. - Diet and Activity Activity: increase activity as tolerated Diet: advance to your usual diet
[2018-07-06 10:43] VITALS: BP 133/74
== END 2018-07-06 11:05 | disposition home or self-care (01) | DRG 580 ==
LOC: EMEROOARM 14:07 → 3NENU 14:07
PROVIDERS: ADMIT Internal Medicine; ATTEND Internal Medicine